=== PATIENT | female | born 1985 | race Caucasian/White ===

== ENCOUNTER 2021-07-18 16:47 | Emergency (ER) | payer OTHER ==
[2021-07-18 17:00] VITALS: BP 140/86
--- NOTE | 2021-07-18 17:15 | ED Physician Documentation ---
History of Present Illness - Stated complaint Stated Complaint: COLD SYMPTOMS - Chief complaint Chief Complaint: Resp - Additonal information Additional information: 35-year-old female presents emergency department for evaluation of what she describes as flulike illness that began this morning. Generalized body aches low-grade temperature elevation of 99, and diarrhea. Mild cough and congestion. She is fully vaccinated for COVID-19 in October 2020. However she did recently travel to [place] over the weekend. Her younger daughter is also checking in with cough cold congestion symptoms. Patient denies pertinent past medical history. Takes no prescribed medications. Is a non-smoker. Review of Systems Constitutional: reports: Fever, Chills, Myalgias Eyes: reports: Reviewed and negative Nose: reports: Congestion Throat: reports: Reviewed and negative Cardiac: denies: Chest pain / pressure, Palpitations Respiratory: reports: Cough. denies: Dyspnea, Hemoptysis, Wheezing GI: reports: Reviewed and negative : reports: Reviewed and negative Skin: reports: Reviewed and negative Musculoskeletal: reports: Reviewed and negative Neurologic: reports: Reviewed and negative PD PAST MEDICAL HISTORY - Allergies Allergies/Adverse Reactions: Allergies Allergy/AdvReac Type Severity Reaction Status Date / Time No Known Drug Allergies Allergy Verified 07/18/21 17:00 PD ED PE NORMAL - General General: Alert and oriented X 3, No acute distress, Well developed/nourished - HEENT HEENT: PERRL, Moist mucous membranes, Pharynx benign - Neck Neck: Supple, no meningeal sign. No: No adenopathy - Cardiac Cardiac: RRR, No murmur, No gallop - Respiratory Respiratory: No respiratory distress, Clear bilaterally - Abdomen Abdomen: Normal bowel sounds, Soft, Non tender - Back Back: No CVA TTP - Derm Derm: Normal color, Warm and dry, No rash - Extremities Extremities: No deformity - Neuro Neuro: Alert and oriented X 3 Eye Opening: Spontaneous Motor: Obeys Commands - Psych Psych: Normal mood Results - Vitals Vitals: Vital Signs - 24 hr 07/18/21 16:51 Temperature 36.8 C Heart Rate 96 Respiratory 16 Rate Blood Pressure 140/86 H O2 Saturation 95 Oxygen O2 Source Room air PD MEDICAL DECISION MAKING - ED course Complexity details: re-evaluated patient, d/w patient ED course: 35-year-old female presents emergency department for evaluation of low-grade temperature elevation, mild cough congestion and diarrhea. She is fully vaccinated for COVID-19 in October 2020. She did recently travel to [place] this weekend. Her young infant daughter is also checking in for URI symptoms. Patient's cardiopulmonary exam is entirely unremarkable. No hypoxia. Other vital signs are within normal limits. At this time we will rescreen her for COVID-19 given that it has been 10 months since last vaccination. I have advised fluids and rest at home. Ibuprofen and Tylenol. emergent return precautions discussed Departure - Departure Disposition: Home, Self Care Clinical Impression: Flu-like symptoms Condition: Stable Record reviewed to determine appropriate education?: Yes Instructions: ED Viral Syndrome Comments: Soledad you are seen in the emergency department today for flulike illness. You were vaccinated for COVID-19 early in the year. At this time your vital signs and heart lung exam are very normal. We will rescreen you for COVID-19 today. I do recommend that you remain in quarantine until these results are known. It is okay to take Tylenol and ibuprofen for body aches. I do recommend you take a lot of fluids. If at any point you feel that your symptoms are worsening, you have chest pain or difficulty breathing then please return immediately to the ER for a second evaluation.
[2021-07-20 08:07] LABS: B. PARAPERTUSSIS- RESP PCR PAN NOT DETECTED; B. PERTUSSIS- RESP PCR PANEL NOT DETECTED; C. PNEUMONIAE- RESP PCR PANEL NOT DETECTED; CORONAVIRUS 229E-RESP PCR NOT DETECTED; CORONAVIRUS HKU1-RESP PCR NOT DETECTED; CORONAVIRUS NL63-RESP PCR NOT DETECTED; CORONAVIRUS OC43-RESP PCR NOT DETECTED; HUMAN METAPNEUMOVIRUS NOT DETECTED; INFLUENZA B - RESP PCR PANEL NOT DETECTED; M. PNEUMONIAE- RESP PCR PANEL NOT DETECTED; PARAINFLUENZA VIRUS 1 NOT DETECTED; PARAINFLUENZA VIRUS 2 NOT DETECTED; PARAINFLUENZA VIRUS 3 NOT DETECTED; PARAINFLUENZA VIRUS 4 NOT DETECTED; RHINOVIRUS/ENTEROVIRUS NOT DETECTED; RSV- RESP PCR PANEL NOT DETECTED; SARS-CoV-2 -RESP PCR PANEL NOT DETECTED
== END 2021-07-18 18:19 | disposition home or self-care (01) ==
LOC: ED 16:47
DX: R50.9 Fever, unspecified (principal); R19.7 Diarrhea, unspecified; M79.10 Myalgia, unspecified site; R05.9 Cough, unspecified; R09.81 Nasal congestion; Z20.822 Contact with and (suspected) exposure to COVID-19
CPT/HCPCS: 0202U; 99283; 99284

== ENCOUNTER 2021-12-06 21:48 | Emergency (ER) | payer OTHER ==
[2021-12-06 21:58] VITALS: BP 134/94
[2021-12-06] MEDS ORDERED: IBUPROFEN 800 MG TABLET PO STA (22:00)
--- NOTE | 2021-12-06 22:05 | ED Physician Documentation ---
PD HPI UPPER EXT INJURY - Stated complaint Stated Complaint: R THUMB INJURY - Chief complaint Chief Complaint: Trauma Ext - History obtained from History obtained from: Patient - History of Present Illness Location: Right, Finger - Additonal information Additional information: Patient is a 36-year-old female with a past medical history of IBS presenting for evaluation of right thumb pain since 11 AM. Patient accidentally slammed her thumb in her car door. She had immediate pain. The pain has worsened through the day and has been a sharp throbbing constant pain. She did take ibuprofen at noon which did not alleviate her pain.Pain is worse with movement. She is right-hand dominant. She denies injury elsewhere. She does not take any blood thinners. Her tetanus is up-to-date. Review of Systems Constitutional: denies: Fever Cardiac: denies: Chest pain / pressure Respiratory: denies: Dyspnea GI: denies: Abdominal Pain Musculoskeletal: reports: Extremity pain (Distal right thumb) Neurologic: denies: Numbness PD PAST MEDICAL HISTORY - Past Medical History GI: Other (IBS) - Allergies Allergies/Adverse Reactions: Allergies Allergy/AdvReac Type Severity Reaction Status Date / Time No Known Drug Allergies Allergy Verified 12/06/21 21:54 PD ED PE NORMAL - General General: Alert and oriented X 3 - HEENT HEENT: Atraumatic - Cardiac Cardiac: Strong equal pulses - Respiratory Respiratory: No respiratory distress - Extremities Extremities: Other (Tenderness to distal right thumb, Normal range of motion at all joints of right thumb, no tenderness at base of right thumb, subungual hematoma involving approximately 30% of nail bed) Results - Vitals Vitals: Vital Signs - 24 hr 12/06/21 21:50 Temperature 36.0 C L Heart Rate 73 Respiratory 16 Rate Blood Pressure 134/94 H O2 Saturation 100 Oxygen O2 Source Room air Procedures - General procedure General procedure: Indication: Subungual hematoma Discussed risks and benefits with the patient. Patient gives verbal consent. She declines need for digital block.Site was cleaned with Betadine and allowed to dry. Using electrocauteryA small hole was made in the nail with ho of dark blood. Patient reports improvement in her pain. Dressing was applied.Patient tolerated procedure with no immediate complications. PD MEDICAL DECISION MAKING - ED course ED course: Patient presenting for evaluation of right thumb pain after injury.Subungual hematoma is present. Patient is neurovascularly intact. She is not anticoagulated. X-ray was obtained with no evidence of fracture or dislocation. Patient gave consent for trephination of subungual hematoma tolerated procedure well with good result.Dressing was applied. Patient was given wound care instructions as well as return precautions. Departure - Departure Disposition: 01 Home, Self Care Clinical Impression: Injury of right thumb, Hematoma, subungual, thumb, right Condition: Stable Instructions: Hematoma Subungual, ED Contusion Finger Comments: The site may bleed for the next 1 to 2 days. Please keep clean and dry dressing over the area. Return to emergency department or PCP with any concerns for infection such as worsening pain, swelling, erythema. Discharge Date/Time: 12/06/21 22:46
--- NOTE | 2021-12-06 22:30 | XRAY Report ---
PROCEDURE: Finger(s) RT INDICATIONS: R thumb pain/slammed in door TECHNIQUE: AP hand, 2 views of the thumb acquired. COMPARISON: None FINDINGS: Bones: No fractures or dislocations. No suspicious bony lesions. Soft tissues: No suspicious soft tissue calcifications. IMPRESSION: No evidence acute bony abnormality of the right thumb. Reviewed by: Anil Curran MD on 12/06/2021 10:29 PM [facility] Approved by: Anil Curran MD on 12/06/2021 10:29 PM [facility] Station ID: [id number]
== END 2021-12-06 22:46 | disposition home or self-care (01) ==
LOC: ED 21:48
DX: S60.011A Contusion of right thumb without damage to nail, initial encounter (principal); W23.0XXA Caught, crushed, jammed, or pinched between moving objects, initial encounter
CPT/HCPCS: 11740; 73140; 99283; A9270

== ENCOUNTER 2023-12-18 12:05 | Emergency (ER) | payer OTHER ==
[2023-12-18 12:57] LABS: BASOPHILS # (AUTO) 0.1 10^3/uL (0.0-0.1); BASOPHILS % (AUTO) 0.9 %; EOSINOPHILS # (AUTO) 0.2 10^3/uL (0.0-0.7); EOSINOPHILS % (AUTO) 2.7 %; HCT - HEMATOCRIT 38.4 % (37.0-47.0); HGB - HEMOGLOBIN 12.9 g/dL (12.0-16.0); LYMPHOCYTES # (AUTO) 1.8 10^3/uL (1.5-3.5); LYMPHOCYTES % (AUTO) 32.1 %; MEAN CORPUSCULAR HEMOGLOBIN 30.3 pg (27.0-31.0); MEAN CORPUSCULAR HGB CONC 33.6 g/dL (32.0-36.0); MEAN CORPUSCULAR VOLUME 90.1 fL (81.0-99.0); MEAN PLATELET VOLUME 8.7 fL (7.9-10.8); MONOCYTES # (AUTO) 0.3 10^3/uL (0.0-1.0); MONOCYTES % (AUTO) 4.5 %; NEUTROPHILS # (AUTO) 3.3 10^3/uL (1.5-6.6); NEUTROPHILS % (AUTO) 59.6 %; PLT - PLATELET COUNT 256 10^3/uL (130-450); RED BLOOD COUNT 4.26 10^6/uL (4.20-5.40); RED CELL DISTRIBUTION WIDTH 12.1 % (12.0-15.0); WHITE BLOOD COUNT 5.6 x10^3/uL (4.8-10.8)
--- NOTE | 2023-12-18 13:11 | ED Physician Documentation ---
PD HPI GI BLEED - Stated complaint Stated Complaint: ABD PX/FEMALE - Chief complaint Chief Complaint: Abd Pain - History obtained from History obtained from: Patient - History of Present Illness Timing - onset: Today Timing - duration: Days (1) Timing - details: Gradual onset Pain level max: 4 Pain level now: 4 Associated symptoms: BRBPR (some clots), Diarrhea, Abdominal pain (LLQ). No: Vomiting, Coffee ground emesis, Hematemesis, Constipation Contributing factors: No: Sick contact, Bad food, Travel, Recent antibiotics, Aspirin use, NSAID use, Anticoagulated Improved by: Other (nothing) Worsened by: Other (nothing) - Additional information Additional information: 38-year-old female presents to the emergency department with bright red blood in her stool today. She states there were some dark clots as well. Having some left lower quadrant abdominal pain. She states she has a history of IBS and is on dicyclomine. Is not on any blood thinners. She states she had a colonoscopy but "a long time ago". Denies any possibility of . Review of Systems Constitutional: denies: Fever, Chills GI: denies: Vomiting Musculoskeletal: denies: Neck pain, Back pain Neurologic: denies: Headache PD PAST MEDICAL HISTORY - Past Medical History Past Medical History: Yes GI: Other (IBS) Other Past Medical History: IBS, hemmorhoids - Allergies Allergies/Adverse Reactions: Allergies Allergy/AdvReac Type Severity Reaction Status Date / Time No Known Drug Allergies Allergy Verified 12/18/23 12:24 - Living Situation Living Arrangement: reports: At home - Social History Does the pt smoke?: No Smoking Status: Never smoker Does the pt drink ETOH?: No PD ED PE NORMAL - Vitals Vital signs reviewed: Yes - General General: Alert and oriented X 3, No acute distress - HEENT HEENT: PERRL, Moist mucous membranes - Neck Neck: Supple, no meningeal sign - Cardiac Cardiac: RRR, Strong equal pulses - Respiratory Respiratory: No respiratory distress, Clear bilaterally - Abdomen Abdomen: Soft, Non distended, Other (TTP LLQ, no peritoneal signs) - Derm Derm: Warm and dry - Neuro Neuro: Alert and oriented X 3 - Psych Psych: Normal mood, Normal affect Results - Vitals Vitals: Vital Signs - 24 hr 12/18/23 12/18/23 12/18/23 12:19 14:24 15:18 Temperature 36.8 C Heart Rate 82 67 72 Respiratory 16 14 16 Rate Blood Pressure 124/85 H 117/76 120/78 O2 Saturation 100 98 Oxygen O2 Source Room air - Labs Labs: Laboratory Tests 12/18/23 12/18/23 12/18/23 12:15 12:50 13:20 WBC 5.6 RBC 4.26 Hgb 12.9 Hct 38.4 MCV 90.1 MCH 30.3 MCHC 33.6 RDW 12.1 Plt Count 256 MPV 8.7 Neut # (Auto) 3.3 Lymph # (Auto) 1.8 [place] # (Auto) 0.3 Eos # (Auto) 0.2 Baso # (Auto) 0.1 Absolute Nucleated RBC 0.00 Nucleated RBC % 0.0 Sodium 137 Potassium 3.7 Chloride 104 Carbon Dioxide 26 Anion Gap 7.0 BUN 13 Creatinine 0.8 Estimated GFR (MDRD) 80 L Glucose 90 Calcium 9.4 Total Bilirubin 0.5 AST 15 ALT 12 Alkaline Phosphatase 48 Total Protein 7.4 Albumin 4.4 Globulin 3.0 Albumin/Globulin Ratio 1.5 Lipase 37 Urine Color YELLOW Urine Clarity CLEAR Urine pH 6.0 Ur Specific Wayne <=1.005 Urine Protein NEGATIVE Urine Glucose (UA) NEGATIVE Urine Ketones NEGATIVE Urine Occult Blood NEGATIVE Urine Nitrite NEGATIVE Urine Bilirubin NEGATIVE Urine Urobilinogen 0.2 (NORMAL) Ur Leukocyte Esterase NEGATIVE Ur Microscopic Review NOT INDICATED Urine Culture Comments NOT INDICATED Urine HCG, Qual NEGATIVE - Rads (name of study) CT abd pelvis Relevant Findings:: Final report received, See rad report PD Medical Decision Making - ED course Complexity details: reviewed results, re-evaluated patient, considered differential, d/w patient ED course: 38-year-old female with a small amount of blood in the stool today. No acute findings on CT abdomen pelvis to explain her symptoms. No further hematochezia here. Did have mild left-sided tenderness. Does appear to have a left ovarian cyst on CT. No evidence of torsion. Abdomen is soft, nontender nondistended on serial exam. No fevers. No significant lab abnormalities. No significant anemia. She will monitor for further blood at home and follow-up with her PCP for further care. Patient is well-appearing, nontoxic. Patient counseled regarding signs and symptoms for which I believe and urgent re-evaluation would be necessary. Patient with good understanding of and agreement to plan and is comfortable going home at this time This document was made in part using voice recognition software. While efforts are made to proofread this document, sound alike and grammatical errors may occur. Departure - Departure Disposition: 01 Home, Self Care Clinical Impression: Hematochezia Condition: Good Instructions: ED Hematochezia Stable Follow-Up: your,doctor in 1 week [Other] Comments: Please follow-up with your doctor for further care. Please return if you worsen. Your CT scan reading as below. Your white blood cell count is normal, your red blood cell count is normal. If the bleeding continues, you should have a colonoscopy with your doctor. Please return for lightheadedness, dizziness or worsening bleeding. On my review of your CAT scan it does appear that you have a 2.5 cm left ovarian cyst. This can be followed up with your doctor as well, they may want to perform an ultrasound in approximately 6 weeks to ensure resolution. EXAM: [id number] CT/ABPEW ([id number]) PROCEDURE: Abdomen/Pelvis W INDICATIONS: LLQ Abdominal pain, diverticulitis suspected CONTRAST: 100ml omni 300 TECHNIQUE: After the administration of intravenous contrast, a CT scan of the abdomen and pelvis was performed. Images were recorded and evaluated at appropriate window settings. Reformats: coronal and sagittal. For radiation dose reduction, the following was used: automated exposure control, adjustment of mA and/or kV according to patient size. COMPARISON: None. FINDINGS: Image quality: Diagnostic. Lower chest: Unremarkable. Liver: No solid mass. Gallbladder and biliary tree: Surgically absent. No biliary dilation, accounting for post- cholecystectomy state. Spleen: No splenomegaly. Pancreas: No pancreatic ductal dilation. Adrenals: No adrenal nodule. Kidneys and ureters: No hydronephrosis. No renal cystic lesion which requires follow up. No solid mass. Stomach, bowel and peritoneum: No bowel distension. No pathologic free fluid. No colonic diverticula. Normal appendix. Lymph nodes: No central or retroperitoneal adenopathy. Vessels: No infrarenal aortic aneurysm. PELVIS Reproductive organs: Unremarkable. Bladder: No abnormal wall thickening, accounting for underdistention. Pelvic lymph nodes: No pelvic adenopathy by size criteria. Bones: No aggressive osseous abnormality. Other: No significant ventral or inguinal hernia. IMPRESSION: No acute findings within the abdomen or pelvis. No explanation for patient's symptoms. Forms: PCP List Discharge Date/Time: 12/18/23 15:18
[2023-12-18 13:25] LABS: BILIRUBIN,URINE NEGATIVE (NEGATIVE); GLUCOSE, URINE (UA) NEGATIVE (NEGATIVE); KETONES,URINE (UA) NEGATIVE (NEGATIVE); LEUKOCYTE ESTERASE, URINE NEGATIVE (NEGATIVE); NITRITE,URINE NEGATIVE (NEGATIVE); OCCULT BLOOD,URINE NEGATIVE (NEGATIVE); PROTEIN,URINE NEGATIVE (NEGATIVE); UROBILINOGEN,URINE 0.2 (NORMAL) E.U./dL (NORMAL)
[2023-12-18 13:27] LABS: CLARITY,URINE CLEAR (CLEAR); HCG UR QUAL NEGATIVE
[2023-12-18 13:34] LABS: ALBUMIN 4.4 g/dL (3.2-5.5); ALBUMIN/GLOBULIN RATIO 1.5 (1.0-2.2); BILIRUBIN,TOTAL 0.5 mg/dL (0.2-1.0); CALCIUM 9.4 mg/dL (8.5-10.3); CREATININE 0.8 mg/dL (0.6-1.3); POTASSIUM 3.7 mmol/L (3.5-4.5); TOTAL PROTEIN 7.4 g/dL (6.4-8.9)
[2023-12-18] MEDS ORDERED: iohexoL-300 100 ML VIAL ONE (14:01)
--- NOTE | 2023-12-18 14:44 | CT Report ---
PROCEDURE: Abdomen/Pelvis W INDICATIONS: LLQ Abdominal pain, diverticulitis suspected CONTRAST: 100ml omni 300 TECHNIQUE: After the administration of intravenous contrast, a CT scan of the abdomen and pelvis was performed. Images were recorded and evaluated at appropriate window settings. Reformats: coronal and sagittal. F or radiation dose reduction, the following was used: automated exposure control, adjustment of mA and /or kV according to patient size. COMPARISON: None. FINDINGS: Image quality: Diagnostic. Lower chest: Unremarkable. Liver: No solid mass. Gallbladder and biliary tree: Surgically absent. No biliary dilation, accounting for post-cholecystec naomi state. Spleen: No splenomegaly. Pancreas: No pancreatic ductal dilation. Adrenals: No adrenal nodule. Kidneys and ureters: No hydronephrosis. No renal cystic lesion which requires follow up. No solid mas s. Stomach, bowel and peritoneum: No bowel distension. No pathologic free fluid. No colonic diverticula. Normal appendix. Lymph nodes: No central or retroperitoneal adenopathy. Vessels: No infrarenal aortic aneurysm. PELVIS Reproductive organs: Unremarkable. Bladder: No abnormal wall thickening, accounting for underdistention. Pelvic lymph nodes: No pelvic adenopathy by size criteria. Bones: No aggressive osseous abnormality. Other: No significant ventral or inguinal hernia. IMPRESSION: No acute findings within the abdomen or pelvis. No explanation for patient's symptoms. Reviewed by: Arsen Swartz MD on 12/18/2023 2:43 PM PST Approved by: Arsen Swartz MD on 12/18/2023 2:43 PM PST Station ID: [id number]
[2023-12-18 15:23] VITALS: BP 120/78; O2SAT 98
[2023-12-18] MEDS: iohexoL-300 100 ML VIAL IVP ONE (18:28)
== END 2023-12-18 15:18 | disposition home or self-care (01) ==
LOC: ED 12:05
DX: K62.5 Hemorrhage of anus and rectum (principal)
CPT/HCPCS: 36415; 74177; 80053; 81003; 81025; 83690; 85025; 99283; 99284; Q9967; 81001; 87086

== ENCOUNTER 2024-01-31 08:17 | Outpatient (CLI) | payer OTHER ==
--- NOTE | 2024-01-31 10:56 | Ultrasound Report ---
PROCEDURE: Pelvic w/Transvaginal INDICATIONS: OVARIAN CYST TECHNIQUE: Real-time scanning was performed of the pelvic organs, with image documentation. Additional endovagi nal scanning was necessary due to incomplete visualization of the adnexal and endometrial structures by transabdominal scanning. COMPARISON: 12/18/2023 CT FINDINGS: Uterus: 8.4 x 3.9 x 5 cm. Anteverted positioning. Endometrium is within normal limits measuring 12 mm . Ovaries: Right ovary is nonenlarged. 2.3 cm dominant follicle versus cyst seen in the left ovary. Ove rall ovarian volume is 14 cc. Other: There are nabothian cysts. IMPRESSION: 12 mm endometrium, within normal limits for age. Left ovarian dominant follicle versus cyst measuring up to 2.3 cm. This does not require dedicated fo llow-up given patient's age. Reviewed by: Abundio Sheffield MD on 01/31/2024 10:55 AM PDT Approved by: Abundio Sheffield MD on 01/31/2024 10:55 AM PDT Station ID: [id number]
== END 2024-01-31 08:18 | disposition home or self-care (01) ==
LOC: DI 08:17
PROVIDERS: ATTEND Nurse Practitioner Family
DX: N83.202 Unspecified ovarian cyst, left side (principal)

== ENCOUNTER 2024-02-15 11:25 | Emergency (ER) | payer OTHER ==
[2024-02-15 12:12] LABS: BILIRUBIN,URINE NEGATIVE (NEGATIVE); GLUCOSE, URINE (UA) NEGATIVE (NEGATIVE); KETONES,URINE (UA) NEGATIVE (NEGATIVE); LEUKOCYTE ESTERASE, URINE SMALL (NEGATIVE); NITRITE,URINE NEGATIVE (NEGATIVE); OCCULT BLOOD,URINE NEGATIVE (NEGATIVE); PH,URINE 6.5 PH (5.0-7.5); PROTEIN,URINE NEGATIVE (NEGATIVE); UROBILINOGEN,URINE 0.2 (NORMAL) E.U./dL (NORMAL)
[2024-02-15 12:17] LABS: CLARITY,URINE CLEAR (CLEAR)
[2024-02-15 12:23] LABS: BASOPHILS # (AUTO) 0.1 10^3/uL (0.0-0.1); BASOPHILS % (AUTO) 0.9 %; EOSINOPHILS # (AUTO) 0.3 10^3/uL (0.0-0.7); EOSINOPHILS % (AUTO) 4.4 %; HCT - HEMATOCRIT 39.8 % (37.0-47.0); HGB - HEMOGLOBIN 13.1 g/dL (12.0-16.0); LYMPHOCYTES % (AUTO) 31.5 %; MEAN CORPUSCULAR HGB CONC 32.9 g/dL (32.0-36.0); MEAN CORPUSCULAR VOLUME 91.3 fL (81.0-99.0); MEAN PLATELET VOLUME 8.7 fL (7.9-10.8); MONOCYTES # (AUTO) 0.3 10^3/uL (0.0-1.0); MONOCYTES % (AUTO) 4.4 %; NEUTROPHILS # (AUTO) 3.8 10^3/uL (1.5-6.6); NEUTROPHILS % (AUTO) 58.6 %; PLT - PLATELET COUNT 311 10^3/uL (130-450); RED BLOOD COUNT 4.36 10^6/uL (4.20-5.40); RED CELL DISTRIBUTION WIDTH 12.1 % (12.0-15.0); WHITE BLOOD COUNT 6.4 x10^3/uL (4.8-10.8)
[2024-02-15 12:32] LABS: BACTERIA,URINE Few /HPF (None Seen); RBC,URINE 0-5 /HPF (0-5); SQUAMOUS EPITHELIAL CELL,UR FEW Squamous (<= Few)
[2024-02-15 12:40] LABS: HCG UR QUAL NEGATIVE
[2024-02-15 12:48] LABS: ALBUMIN 4.5 g/dL (3.2-5.5); ALBUMIN/GLOBULIN RATIO 1.5 (1.0-2.2); BILIRUBIN,TOTAL 0.5 mg/dL (0.2-1.0); CALCIUM 9.8 mg/dL (8.5-10.3); CREATININE 0.8 mg/dL (0.6-1.3); POTASSIUM 3.9 mmol/L (3.5-4.5); TOTAL PROTEIN 7.5 g/dL (6.4-8.9)
[2024-02-15] MEDS: SUCRALFATE 1 GM/10 ML UDC PO STA (13:24)
[2024-02-15] MEDS: MAG HYDROX/AL HYDROX/SIMETH 30 ML UDC PO STA (13:24)
[2024-02-15] MEDS: FAMOTIDINE 20 MG TABLET PO STA (13:24)
[2024-02-15] MEDS: LIDOCAINE VISCOUS 2% 15 ML UDC MM STA (13:25)
--- NOTE | 2024-02-15 13:40 | ED Physician Documentation ---
History of Present Illness - Stated complaint Stated Complaint: FEVER/STOMACH PX - Chief complaint Chief Complaint: Abd Pain - History obtained from History obtained from: Patient - History of Present Illness Timing: How many days ago (3) Pain level max: 7 Pain level now: 4 - Additonal information Additional information: 38-year-old female presents to the emergency department with 3 days of intermittent epigastric abdominal pain. She states that it tends to occur in the late morning/early afternoon. Last for about 6 hours and then resolves. She has a history of irritable bowel syndrome. Last colonoscopy about 10 years ago. No fevers. No cough or congestion. No hematochezia or melena. Nothing seems to make the pain better or worse. She took Tums without relief. She states Motrin seems to help. Denies any possibility of . Review of Systems Constitutional: denies: Fever, Chills Respiratory: denies: Cough GI: denies: Nausea, Vomiting, Constipation, Diarrhea, Hematemesis, Bloody / black stool : denies: Dysuria, Frequency, Hesitancy Skin: denies: Rash Musculoskeletal: denies: Neck pain, Back pain Neurologic: denies: Headache PD PAST MEDICAL HISTORY - Past Medical History Past Medical History: Yes Cardiovascular: None Respiratory: None Neuro: None Endocrine/Autoimmune: None GI: Crohn's disease, Other [employer]: None : None HEENT: None Psych: None Musculoskeletal: None Derm: None - Past Surgical History Past Surgical History: Yes General: Cholecystectomy /[employer]: Other - Present Medications Home Medications: Ambulatory Orders Medication Instructions Recorded Confirmed Dicyclomine [Bentyl] 1 - 2 tab PO DAILY 02/15/24 02/15/24 Loratadine [Claritin] 10 mg PO DAILY 02/15/24 02/15/24 Ondansetron Odt [Zofran] 4 mg TL Q6H PRN #10 tablet 02/15/24 predniSONE [Deltasone] 10 mg PO [id number] #42 tab 02/15/24 - Allergies Allergies/Adverse Reactions: Allergies Allergy/AdvReac Type Severity Reaction Status Date / Time No Known Drug Allergies Allergy Verified 02/15/24 11:42 - Social History Does the pt smoke?: No Smoking Status: Never smoker Does the pt drink ETOH?: No Does the pt have substance abuse?: No - Immunizations Immunizations are current?: Yes - POLST Patient has POLST: No PD ED PE NORMAL - Vitals Vital signs reviewed: Yes - General General: Alert and oriented X 3, No acute distress - HEENT HEENT: PERRL, Moist mucous membranes - Neck Neck: Supple, no meningeal sign - Cardiac Cardiac: RRR, Strong equal pulses - Respiratory Respiratory: No respiratory distress, Clear bilaterally - Abdomen Abdomen: Soft, Non distended, Other (Mild tenderness palpation epigastric without peritoneal signs. Otherwise benign abdominal exam) - Back Back: No spinal TTP - Derm Derm: Warm and dry - Extremities Extremities: No edema, No calf tenderness / cord - Neuro Neuro: Alert and oriented X 3 - Psych Psych: Normal mood, Normal affect Results - Vitals Vitals: Vital Signs - 24 hr 02/15/24 02/15/24 11:37 13:59 Temperature 36.8 C 36.6 C Heart Rate 76 85 Respiratory 16 18 Rate Blood Pressure 125/81 H 135/82 H O2 Saturation 100 98 Oxygen O2 Source Room air - Labs Labs: Laboratory Tests 02/15/24 02/15/24 02/15/24 11:45 11:45 12:19 WBC 6.4 RBC 4.36 Hgb 13.1 Hct 39.8 MCV 91.3 MCH 30.0 MCHC 32.9 RDW 12.1 Plt Count 311 MPV 8.7 Neut # (Auto) 3.8 Lymph # (Auto) 2.0 [place] # (Auto) 0.3 Eos # (Auto) 0.3 Baso # (Auto) 0.1 Absolute Nucleated RBC 0.00 Nucleated RBC % 0.0 Sodium Potassium Chloride Carbon Dioxide Anion Gap BUN Creatinine Estimated GFR (MDRD) Glucose Calcium Total Bilirubin AST ALT Alkaline Phosphatase Total Protein Albumin Globulin Albumin/Globulin Ratio Lipase Urine Color YELLOW Urine Clarity CLEAR Urine pH 6.5 Ur Specific [place] <=1.005 Urine Protein NEGATIVE Urine Glucose (UA) NEGATIVE Urine Ketones NEGATIVE Urine Occult Blood NEGATIVE Urine Nitrite NEGATIVE Urine Bilirubin NEGATIVE Urine Urobilinogen 0.2 (NORMAL) Ur Leukocyte Esterase SMALL H Urine RBC 0-5 Urine WBC 4-5 Ur Squamous Epith Cells FEW Squamous Urine Bacteria Few Ur Microscopic Review INDICATED Urine Culture Comments INDICATED Urine HCG, Qual NEGATIVE 02/15/24 12:19 WBC RBC Hgb Hct MCV MCH MCHC RDW Plt Count MPV Neut # (Auto) Lymph # (Auto) [place] # (Auto) Eos # (Auto) Baso # (Auto) Absolute Nucleated RBC Nucleated RBC % Sodium 136 Potassium 3.9 Chloride 102 Carbon Dioxide 30 Anion Gap 4.0 L BUN 14 Creatinine 0.8 Estimated GFR (MDRD) 80 L Glucose 93 Calcium 9.8 Total Bilirubin 0.5 AST 16 ALT 12 Alkaline Phosphatase 52 Total Protein 7.5 Albumin 4.5 Globulin 3.0 Albumin/Globulin Ratio 1.5 Lipase 43 Urine Color Urine Clarity Urine pH Ur Specific [place] Urine Protein Urine Glucose (UA) Urine Ketones Urine Occult Blood Urine Nitrite Urine Bilirubin Urine Urobilinogen Ur Leukocyte Esterase Urine RBC Urine WBC Ur Squamous Epith Cells Urine Bacteria Ur Microscopic Review Urine Culture Comments Urine HCG, Qual PD Medical Decision Making - ED course Complexity details: reviewed results, re-evaluated patient, considered differential, d/w patient ED course: No significant change with GI cocktail. Laboratory testing does not reveal any acute abnormalities. History of IBS. She states that they were concerned that she could have an inflammatory bowel disease as well, has not seen a GI in several years, last colonoscopy was 10 years ago. She is well-appearing, nontoxic. Afebrile. Do not think a CT scan would be of acute utility at this time, last CT scan was about 2 months ago. We will trial her on a steroid taper to see if this could potentially be inflammatory bowel disease. Recommend that she follow-up with her doctor for referral to GI and a colonoscopy. Patient is well-appearing, nontoxic. Afebrile. No evidence of pancreatitis. Has had a cholecystectomy remotely. Abdomen is soft, minimally tender epigastric on serial exam, no peritoneal signs. Patient counseled regarding signs and symptoms for which I believe and urgent re-evaluation would be necessary. Bobby campos with good understanding of and agreement to plan and is comfortable going home at this time This document was made in part using voice recognition software. While efforts are made to proofread this document, sound alike and grammatical errors may occur. Departure - Departure Disposition: 01 Home, Self Care Clinical Impression: Abdominal pain Qualifiers: Abdominal location: unspecified location Qualified Code(s): R10.9 - Unspecified abdominal pain Condition: Good Instructions: ED Abdominal Pain Female Non-Specific Abdominal Pain Follow-Up: AISSATOU SHELL ARNP [Primary Care Provider] - Within 1 week Prescriptions: predniSONE [Deltasone] 10 mg PO [id number] #42 tab Ondansetron Odt [Zofran] 4 mg TL Q6H PRN #10 tablet PRN Reason: Nausea / Vomiting Comments: Your prescriptions were [facility] to [facility] in [place]. Please follow-up with your doctor for further care. As we discussed your laboratory testing does not show any significant abnormalities today. Your pain did not change much with a "GI cocktail". Your pancreas levels and liver tests are normal. This may be related to your IBS. It is possible that you have inflammatory bowel disease as well. Therefore we will trial you on a short course of steroids to see if this improves your symptoms. Recommend GI follow-up and possible endoscopy/ colonoscopy. Forms: PCP List Discharge Date/Time: 02/15/24 13:59
[2024-02-15] MEDS: ONDANSETRON ODT 4 MG TABLET TL STA (13:52)
[2024-02-15] MEDS: predniSONE 20 MG TABLET PO STA (13:52)
[2024-02-15 14:08] VITALS: BP 135/82; O2SAT 98
== END 2024-02-15 13:59 | disposition home or self-care (01) ==
LOC: ED 11:25
DX: R10.13 Epigastric pain (principal)
CPT/HCPCS: 36415; 80053; 81001; 81025; 83690; 85025; 87086; 99283; 99284; A9270; J7512; Q0162; 81003